=== PATIENT | male | born 1970 | race Two or more races ===

== ENCOUNTER 2017-07-15 18:34 | Emergency (ER) | payer OTHER ==
[2017-07-15] MEDS ORDERED: ONDANSETRON (ODT) 4 MG TAB ODT (20:48)
[2017-07-15] MEDS: LIDOCAINE/MYLANTA 40 ML BTL PO (21:25)
[2017-07-15] MEDS: ONDANSETRON 4 MG INJ IV (21:25)
[2017-07-15] MEDS: morphine 4 MG/ML VIAL IV (21:26)
[2017-07-15] MEDS: SOD CHLORIDE 0.9% 1,000 ML IV (21:26)
[2017-07-15 21:34] LABS: URINE BLOOD (Dip) POC Negative (NEGATIVE); URINE KETONES (Dip) POC Negative (NEGATIVE); URINE LEUKOCYTE EST (Dip) POC Negative (NEGATIVE); URINE NITRITE (Dip) POC Negative (NEGATIVE); URINE TOTAL PROTEIN POC Negative (NEGATIVE)
[2017-07-15 21:39] LABS: ADD MAN DIFF? NO
[2017-07-15 21:41] LABS: BASOPHILS % 0.2 % (0.0-2.0); EOSINOPHILS # 0.1 10^3/ul (0.0-0.5); EOSINOPHILS % 1.1 % (0.0-7.0); HEMATOCRIT 43.2 % (42.0-52.0); HEMOGLOBIN 14.4 g/dl (14.0-18.0); LYMPHOCYTES # 1.6 10^3/ul (0.8-2.9); LYMPHOCYTES % 16.5 % (15.0-51.0); MEAN CORPUSCULAR HEMOGLOBIN 29.4 pg (29.0-33.0); MEAN CORPUSCULAR HGB CONC 33.3 g/dl (32.0-37.0); MEAN CORPUSCULAR VOLUME 88.2 fl (82.0-101.0); MEAN PLATELET VOLUME 10.7 fl (7.4-10.4); MONOCYTE # 0.5 10^3/ul (0.3-0.9); MONOCYTES % 5.3 % (0.0-11.0); NEUTROPHIL # 7.2 10^3/ul (1.6-7.5); NEUTROPHILS % 76.5 % (39.0-77.0); PLATELET COUNT 207 10^3/UL (140-415); RED CELL DISTRIBUTION WIDTH 13.2 % (11.5-14.5)
[2017-07-15 21:41] LABS: WHITE BLOOD COUNT 9.5 10^3/ul (4.8-10.8)
[2017-07-15 22:01] LABS: ALANINE AMINOTRANSFERASE 43 IU/L (13-69); ALBUMIN 4.8 g/dl (3.3-4.9); ALKALINE PHOSPHATASE 63 IU/L (42-121); ANION GAP 17 (8-16); ASPARTATE AMINO TRANSFERASE 33 IU/L (15-46); BILIRUBIN,INDIRECT 0.1 mg/dl (0-1.1); BILIRUBIN,TOTAL 0.1 mg/dl (0.2-1.3); BLOOD UREA NITROGEN 18 mg/dl (7-20); CALCIUM 9.3 mg/dl (8.4-10.2); CARBON DIOXIDE 26 mmol/L (21-31); CHLORIDE 106 mmol/L (97-110); CREATININE 1.16 mg/dl (0.61-1.24); GLUCOSE 146 mg/dl (70-220); LIPASE 99 U/L (23-300); POTASSIUM 4.3 mmol/L (3.5-5.1); SODIUM 145 mmol/L (135-144); TOTAL PROTEIN 7.8 g/dl (6.1-8.1)
[2017-07-15 22:22] LABS: TROPONIN-I < 0.012 ng/ml (0.00-0.12)
== END 2017-07-15 23:13 | disposition home or self-care (01) ==
LOC: FTE 18:34
DX: R10.13 Epigastric pain (principal)
CPT/HCPCS: 36415; 76705; 80053; 81003; 83690; 84484; 85025; 96374; 96375; 99285-25

== ENCOUNTER 2017-07-31 23:52 | Emergency (ER) | payer OTHER ==
[2017-08-01] MEDS: DIPHENHYDRAMINE 50 MG INJ IM (05:40)
== END 2017-08-01 05:48 | disposition home or self-care (01) ==
LOC: FTE 23:52
DX: R21 Rash and other nonspecific skin eruption (principal)
CPT/HCPCS: 96372; 99284-25

== ENCOUNTER 2017-10-05 05:49 | Day surgery (SDC) | payer OTHER ==
[2017-10-05] MEDS ORDERED: MIDAZOLAM 1 MG/ML 2 ML INJ (07:42)
[2017-10-05] MEDS ORDERED: FENTAnyl 50 MCG/ML VIAL (07:42)
== END 2017-10-05 10:42 | disposition home or self-care (01) ==
LOC: GIL 05:49
DX: K29.50 Unspecified chronic gastritis without bleeding (principal); K21.9 Gastro-esophageal reflux disease without esophagitis; J45.909 Unspecified asthma, uncomplicated; E78.5 Hyperlipidemia, unspecified
CPT/HCPCS: 43239; 88305; 88312